=== PATIENT | male | born 1935 | race Caucasian/White ===

== ENCOUNTER 2018-11-14 08:27 | Outpatient (CLI) | payer MEDICARE, BC | END 2018-11-14 23:59 | disposition home or self-care (01) | LOC: ROC 08:27 | PROVIDERS: ATTEND Radiology Radiation Oncology | DX: Z02.9 Encounter for administrative examinations, unspecified (principal) ==

== ENCOUNTER 2019-11-07 09:43 | Outpatient (CLI) | payer MEDICARE, BC ==
[2019-11-07 11:11] LABS: MICROSCOPIC AUTO
[2019-11-07 11:12] LABS: ALBUMIN 3.7 g/dL (3.4-5.0); ANION GAP 7 mmol/L (5-15); CALCIUM 9.1 mg/dL (8.5-10.1); CHLORIDE 106 mmol/L (98-107)
[2019-11-07 11:16] LABS: ALANINE AMINOTRANSFERASE 19 U/L (12-78); ALKALINE PHOSPHATASE 88 U/L (45-117); BILIRUBIN,TOTAL 0.4 mg/dL (0.2-1.0); CREATININE 1.82 mg/dL (0.7-1.3)
== END 2019-11-07 23:59 | disposition home or self-care (01) ==
LOC: STAR 09:43
PROVIDERS: ATTEND Urology
DX: Z01.818 Encounter for other preprocedural examination (principal); N13.5 Crossing vessel and stricture of ureter without hydronephrosis
CPT/HCPCS: 36415; 80053; 81001; 87086; 93005

== ENCOUNTER 2019-11-16 08:47 | Day surgery (SDC) | payer MEDICARE, BC ==
[~2019-11-16] VITALS: Ht 180.3 cm; Wt 84.0 kg
[2019-11-16] MEDS ORDERED: PREVASTATIN (09:20)
[2019-11-16] MEDS ORDERED: METFORMIN (09:20)
[2019-11-16] MEDS ORDERED: FLONASE (09:20)
[2019-11-16] MEDS ORDERED: LISI-170 PO (09:20)
[2019-11-16] MEDS ORDERED: JANUVIA (09:20)
[2019-11-16] MEDS ORDERED: LACTATED RINGERS 1,000 ML IV SCH (10:00)
[2019-11-16] MEDS ORDERED: FENTANYL PF 250 MCG/5ML ONE (10:41)
[2019-11-16] MEDS ORDERED: MIDAZOLAM 1 MG/ML, 2ML ONE (10:41)
[2019-11-16] MEDS ORDERED: CEFTRIAXONE 1,000 MG ONE (12:08)
[2019-11-16] MEDS ORDERED: HYDROmorphone 1 MG/ML, 1ML INJ IV PRN (12:30)
[2019-11-16] MEDS ORDERED: KETOROLAC 30 MG/1 ML IV PRN (12:30)
[2019-11-16] MEDS ORDERED: LABETALOL 5MG/ML, 20ML IV PRN (12:30)
[2019-11-16] MEDS ORDERED: DIAZEPAM 5 MG/ML, 2ML IV PRN ×2 (12:30)
[2019-11-16] MEDS ORDERED: OXYcodone 5 MG/5 ML ORAL.SOL UDC PO PRN (12:30)
[2019-11-16] MEDS ORDERED: ALBUTEROL SULFATE 2.5 MG/3 ML NPPB PRN (12:30)
[2019-11-16] MEDS ORDERED: hydrALAzine 20 MG/ML, 1ML IV PRN (12:30)
[2019-11-16] MEDS ORDERED: FENTANYL PF 100 MCG/2ML IV PRN (12:30)
[2019-11-16] MEDS ORDERED: METOCLOPRAMIDE 5 MG/ML, 2ML IV PRN (12:30)
[2019-11-16] MEDS ORDERED: MEPERIDINE/PF 25MG/0.5ML IVPush PRN (12:30)
[2019-11-16] MEDS ORDERED: ONDANSETRON 2MG/ML, 2ML IVPush PRN (12:30)
[2019-11-16] MEDS ORDERED: PROMETHAZINE 25 MG/ML, 1ML IV PRN (12:30)
[2019-11-16] MEDS ORDERED: hydrALAzine 20 MG/ML, 1ML ONE (13:08)
[2019-11-16] MEDS ORDERED: GENTAMICIN 80 MG/2 ML IV ONE (14:57)
[2019-11-16] MEDS ORDERED: PROPOFOL 10 MG/ML, 20ML ONE (15:10)
[2019-11-16] MEDS ORDERED: SUCCINYLCHOLINE 20 MG/ML, 10ML ONE (15:10)
[2019-11-16] MEDS ORDERED: DEXAMETHASONE 4 MG/ML, 1ML ONE (15:10)
== END 2019-11-16 15:00 | disposition home or self-care (01) ==
LOC: OUT 08:47
PROVIDERS: ATTEND Urology
DX: N13.30 Unspecified hydronephrosis (principal); N32.89 Other specified disorders of bladder; C67.9 Malignant neoplasm of bladder, unspecified; I10 Essential (primary) hypertension; E11.9 Type 2 diabetes mellitus without complications; E78.00 Pure hypercholesterolemia, unspecified; Z79.84 Long term (current) use of oral hypoglycemic drugs; Z79.899 Other long term (current) drug therapy; Z87.891 Personal history of nicotine dependence; Z98.890 Other specified postprocedural states; Z82.5 Family history of asthma and other chronic lower respiratory diseases
CPT/HCPCS: 52204; 74018; 82962; 88305; C1769; J0330; J0360; J0696; J1100; J1580; J2250; J2704; J3010; J7120; 76000